=== PATIENT | female | born 1980 | race Caucasian/White ===

== ENCOUNTER 2018-04-16 12:41 | Emergency (ER) | payer OTHER ==
[~2018-04-16] VITALS: Ht 162.6 cm; Wt 115.2 kg
[2018-04-16 14:10] VITALS: BP 138/88
--- NOTE | 2018-04-16 14:29 | PHYS DOC ---
Adult General Chief Complaint Chief Complaint: FLU SYMPTOM HPI HPI Patient is a 37 year old F who presents with 2-3 days of fever, cough, congestion and body aches. She did have some vomiting which has resolved. Her 3 year old son was recently sick with a "virus" and thinks she caught it from him but she tried to go to work today and felt too sick to be there so decided to come in for evaluation. She states she feels very run down. She has a history of viral meningitis and states her body never full recovered from that years ago. Review of Systems Review of Systems Constitutional: Reports fevers and chills. HENT: Reports nasal congestion, ear pressure and sinus pain. Respiratory: Reports nonproductive cough. Cardiovascular: No chest pain, palpitations or edema. GI: Denies abdominal pain or diarrhea. She did have nausea and vomiting. : Denies dysuria or hematuria Musculoskeletal: Denies back pain. Diffuse myalgias. Integument: Denies rash or skin lesions Neurologic: Denies headache, focal weakness or sensory changes All other systems were reviewed and found to be within normal limits, except as documented in this note. Allergies Allergies Allergies Coded Allergies Type Severity Reaction Last Updated Verified No Known Drug Allergies 04/16/18 No Physical Exam Physical Exam Constitutional: Well developed, well nourished, no acute distress, non-toxic appearance. She does appear to not feel well and is flushed. HENT: Normocephalic, atraumatic, bilateral ear erythema, nasal congestion noted- clear, B maxillary sinus tenderness. Eyes: PERRLA, EOMI, conjunctiva normal, no discharge. Neck: Normal range of motion, no tenderness, supple, no stridor. No meningismus. Cardiovascular:Heart rate regular rhythm, no murmur Lungs & Thorax: Bilateral breath sounds clear to auscultation Abdomen: Bowel sounds normal, soft, no tenderness, no masses, no pulsatile masses. Skin: Warm, dry, no erythema, no rash. Back: No tenderness, no CVA tenderness. Extremities: No tenderness, no cyanosis, no clubbing, ROM intact, no edema. Neurologic: Alert and oriented X 3, normal motor function, normal sensory function, no focal deficits noted. Psychologic: Affect normal, judgement normal, mood normal. Current Patient Data Vital Signs Vital Signs Date Time Temp Pulse Resp B/P (MAP) Pulse Ox O2 Delivery O2 Flow Rate FiO2 04/16/18 14:10 97.9 72 16 138/88 (105) 100 Room Air 97.9 Lab Values Laboratory Tests Test 04/16/18 14:20 Influenza Type A Antigen Negative (NEGATIVE) Influenza Type B Antigen Negative (NEGATIVE) EKG EKG [] Radiology/Procedures Radiology/Procedures [] Course & Med Decision Making Course & Med Decision Making Pertinent Labs and Imaging studies reviewed. (See chart for details) Influenza swab is negative, discussed treating her for sinus infection with her hx of those and current symptoms but discussed that this could still be a viral illness. Pt encouraged to rest, push fluids and wrote work note for next 48 hours. Pt to return if symptoms worsen at anytime. Dragon Disclaimer Dragon Disclaimer This electronic medical record was generated, in whole or in part, using a voice recognition dictation system. Departure Departure Impression: Primary Impression: Sinusitis Disposition: HOME, SELF-CARE Condition: GOOD Referrals: DIANE CERDA DO (PCP) Patient Instructions: Sinusitis, Ebuf-[id number] Additional Instructions: Please rest, push fluids and bland diet and follow up with your PCP. Scripts Ondansetron (ZOFRAN ODT) 4 Mg Tab.rapdis 1 TAB SL Q8HRS, #10 TAB Prov: GRACE RODAS 04/16/18 Fluticasone Propionate (Flonase Allergy Relief) 9.9 Ml Mobile.susp 2 SPRAYS NS DAILY for 7 Days, BOTTLE Prov: GRACE RODAS 04/16/18 Azithromycin (AZITHROMYCIN PACKET) 1 Gm Packet 1 PACKET PO ONCE, #1 PACKET Prov: GRACE RODAS 04/16/18 GRACE RODAS Apr 16, 2018 14:29
[2018-04-16 15:03] LABS: INFLUENZA A PATIENT NEGATIVE (NEGATIVE); INFLUENZA B PATIENT NEGATIVE (NEGATIVE)
[2018-04-16] MEDS ORDERED: AZIT1PAC9 PO (15:10)
[2018-04-16] MEDS ORDERED: FLUT9.9S NS (15:10)
[2018-04-16] MEDS ORDERED: ONDA4TAB10 SL (15:10)
== END 2018-04-16 15:19 | disposition home or self-care (01) ==
LOC: ER 12:41
DX: J32.9 Chronic sinusitis, unspecified (principal)
CPT/HCPCS: 87804; 99284

== ENCOUNTER 2018-06-20 12:58 | Emergency (ER) | payer OTHER ==
[~2018-06-20] VITALS: Ht 162.6 cm; Wt 113.4 kg
[~2018-06-20 12:58] MED LIST: AZIT1PAC9 PO; FLUT9.9S NS; ONDA4TAB10 SL
[2018-06-20 13:12] VITALS: BP 134/84
[2018-06-20] MEDS ORDERED: TETRACAINE 0.5% OPHTH SOLUTION 4ML BOTTLE. OS ONE (13:15)
[2018-06-20] MEDS ORDERED: FLUORESCEIN OPHTH TEST STRIP. OS ONE (13:15)
[2018-06-20] MEDS ORDERED: NEOMY/BACITR/POLYMYXIN OINT PACKET. TP ONE (13:54)
[2018-06-20] MEDS ORDERED: TRAM50TA PO (13:56)
--- NOTE | 2018-06-20 13:57 | PHYS DOC ---
Past Medical History Past Medical History: Anxiety, Bipolar, Hypertension Additional Past Medical Histor: viral spinal meningitis; PTSD; eye problem Past Surgical History: Alcohol Use: None Drug Use: None Adult General Chief Complaint Chief Complaint: EYE PROBLEMS HPI HPI Patient is a 37 year old female who presents with an injury to the left eye that occurred yesterday when her toddler history the eye with a leg go medical block. The patient was blind having glass contact lens at the time and states that it felt like it scratched her eye. She states the contact did not break. She immediately took her contact lens out but has continued to have pain and redness. She denies any changes in vision. She states that she was carrying a laundry basket down the stairs today and was unable to see properly. With her poor visual acuity she slipped and when she caught herself she cut her finger on the metal tread of the stair. She cleaned it and placed Band-Aids over it. She is up-to-date on her tetanus vaccine. Review of Systems Review of Systems Constitutional: Denies fever or chills [] Eyes: See history of present illness HENT: Denies nasal congestion or sore throat [] Respiratory: Denies cough or shortness of breath [] Cardiovascular: No additional information not addressed in HPI [] Musculoskeletal: Denies back pain or joint pain [] Integument: See history of present illness Neurologic: Denies headache, focal weakness or sensory changes [] Endocrine: Denies polyuria or polydipsia [] All other systems were reviewed and found to be within normal limits, except as documented in this note. Current Medications Current Medications Current Medications Medications (Trade) Dose Ordered Sig/Trupti Start Time Stop Time Status Last Admin Dose Admin Fluorescein Sodium (Ful-Shy) 1 strip 1X ONCE 06/20/18 13:15 06/20/18 13:16 DC 06/20/18 13:15 1 STRIP Neomycin/ Polymyxin/ Bacitracin (Triple Antibiotic Ointment) 1 pkt STK-MED ONCE 06/20/18 13:54 06/20/18 13:55 DC Tetracaine HCl (Tetracaine) 1 drop 1X ONCE 06/20/18 13:15 06/20/18 13:16 DC 06/20/18 13:15 1 DROP Allergies Allergies Allergies Coded Allergies Type Severity Reaction Last Updated Verified No Known Drug Allergies 04/16/18 No Physical Exam Physical Exam Constitutional: Well developed, well nourished, no acute distress, non-toxic appearance. [] HENT: Normocephalic, atraumatic, bilateral external ears normal, oropharynx moist, no oral exudates, nose normal. [] Eyes: PERRLA, EOMI, conjunctiva erythematous to left, right eye normal, copious watery discharge. [] Neck: Normal range of motion, no tenderness, supple, no stridor. [] Cardiovascular:Heart rate regular rhythm, no murmur [] Lungs & Thorax: Bilateral breath sounds clear to auscultation [] Skin: Skin has been shorn off the dorsal fifth digit that is shallow and non- gaping Back: No tenderness, no CVA tenderness. [] Extremities: tenderness, no cyanosis, no clubbing, ROM intact, no edema or sign of tendon injury. [] Neurologic: Alert and oriented X 3, normal motor function, normal sensory function, no focal deficits noted. [] Psychologic: Affect normal, judgement normal, mood normal. [] Current Patient Data Vital Signs Vital Signs Date Time Temp Pulse Resp B/P (MAP) Pulse Ox O2 Delivery O2 Flow Rate FiO2 06/20/18 13:12 98.2 88 16 134/84 (101) 98 Room Air 98.2 EKG EKG [] Radiology/Procedures Radiology/Procedures A wood's lamp was used to examine the eye after instillation of tetracaine and full glow. A corneal abrasion was noted across the bottom half of the cornea with dye uptake. Course & Med Decision Making Course & Med Decision Making Pertinent Labs and Imaging studies reviewed. (See chart for details) []See visual acuity in nurse's note. These acuities are unchanged from the patient's normal baseline. The patient's finger was cleaned and dressed with Neosporin and nonadherent gauze. Dragon Disclaimer Dragon Disclaimer This electronic medical record was generated, in whole or in part, using a voice recognition dictation system. Departure Departure Impression: Primary Impression: Corneal abrasion Additional Impression: Laceration of finger Disposition: HOME, SELF-CARE Condition: STABLE Referrals: DIANE CERDA DO (PCP) Patient Instructions: Eye - Corneal Abrasion, Laceration Care, Adult Additional Instructions: Keep the wound finger clean and dry. Watch for any signs of infection. Use your at home antibiotic for your eye. Follow-up with your eye doctor in the next 3 days for a recheck. If worsening return to the emergency department. Scripts Tramadol Hcl (TRAMADOL HCL) 50 Mg Tablet 50 MG PO Q6HRS PRN for PAIN, #10 TAB Prov: MARK LOCKETT APRN 06/20/18 Problem Qualifiers MARK LOCKETT APRN Jun 20, 2018 13:56
== END 2018-06-20 14:05 | disposition home or self-care (01) ==
LOC: ER 12:58
DX: S61.216A Laceration without foreign body of right little finger without damage to nail, initial encounter (principal); H18.822 Corneal disorder due to contact lens, left eye; F41.9 Anxiety disorder, unspecified; F31.9 Bipolar disorder, unspecified; I10 Essential (primary) hypertension; Z98.890 Other specified postprocedural states; W26.8XXA Contact with other sharp object(s), not elsewhere classified, initial encounter; Y93.89 Activity, other specified; Y92.89 Other specified places as the place of occurrence of the external cause; Y99.8 Other external cause status
CPT/HCPCS: 99284

== ENCOUNTER 2019-01-07 12:18 | Emergency (ER) | payer OTHER ==
[~2019-01-07] VITALS: Ht 162.6 cm; Wt 113.4 kg
[~2019-01-07 12:18] MED LIST changes: +TRAM50TA PO
[2019-01-07 12:50] VITALS: BP 116/68
--- NOTE | 2019-01-07 13:50 | RAD ---
Right ankle, 3 views, 01/07/2019: HISTORY: Fall, ankle pain No fracture or dislocation is identified. The soft tissues are unremarkable. IMPRESSION: No acute bony abnormality is detected. Electronically signed by: Rich Dawson MD (01/07/2019 1:47 PM) [facility]
--- NOTE | 2019-01-07 14:01 | RAD ---
CT of the head without contrast, 01/07/2019: HISTORY: Fall The ventricles are within normal limits in size. There is no shift of the midline structures. There is no evidence of acute intracranial hemorrhage or mass effect. IMPRESSION: No acute intracranial abnormality is detected. RS Compliance Statement: One or more of the following individualized dose reduction techniques were utilized for this examination: 1. Automated exposure control 2. Adjustment of the mA and/or kV according to patient size 3. Use of iterative reconstruction technique Electronically signed by: Rich Dawson MD (01/07/2019 1:58 PM) [facility] [place]
[2019-01-07] MEDS ORDERED: IBUP-1060 PO (14:10)
--- NOTE | 2019-01-07 14:10 | PHYS DOC ---
Past Medical History Past Medical History: Anxiety, Bipolar, Hypertension Additional Past Medical Histor: viral spinal meningitis; PTSD; eye problem Past Surgical History: Alcohol Use: None Drug Use: None Adult General Chief Complaint Chief Complaint: MECHANICAL FALL HPI HPI Patient is a 38 year old female who presents with complaining of ankle pain. Patient states she had the fall from 4 steps on to 4 hours prior to arrival to ER without loss of consciousness. Patient states she hit her head and twisted her right ankle without other injuries. Patient rated her pain moderate and denies focal neuro deficit. Patient doesn't want to have pain medication in ER. Review of Systems Review of Systems Constitutional: Denies fever or chills [] Eyes: Denies change in visual acuity, redness, or eye pain [] HENT: Denies nasal congestion or sore throat [] Respiratory: Denies cough or shortness of breath [] Cardiovascular: No additional information not addressed in HPI [] GI: Denies abdominal pain, nausea, vomiting, bloody stools or diarrhea [] : Denies dysuria or hematuria [] Musculoskeletal: Denies back pain, reports joint pain [] Integument: Denies rash or skin lesions [] Neurologic: Reports headache, denies focal weakness or sensory changes [] Endocrine: Denies polyuria or polydipsia [] All other systems were reviewed and found to be within normal limits, except as documented in this note. Allergies Allergies Allergies Coded Allergies Type Severity Reaction Last Updated Verified No Known Drug Allergies 04/16/18 No Physical Exam Physical Exam Constitutional: Well developed, well nourished, mild distress, non-toxic appearance. [] HENT: Normocephalic, atraumatic, oropharynx moist, no oral exudates, nose normal. [] Eyes: PERRLA, EOMI, conjunctiva normal, no discharge. [] Neck: Normal range of motion, no tenderness, supple, no stridor. [] Cardiovascular:Heart rate regular rhythm, no murmur [] Lungs & Thorax: Bilateral breath sounds clear to auscultation [] Abdomen: Bowel sounds normal, soft, no tenderness, no masses, no pulsatile masses. [] Skin: Warm, dry, no erythema, no rash. [] Back: No tenderness, no CVA tenderness. [] Extremities: Right ankle without deformity, mild tenderness in lateral malleolus without edema or constipation,, no cyanosis, no clubbing, ROM intact, no edema. [] Neurologic: Alert and oriented X 3, normal motor function, normal sensory function, no focal deficits noted. [] Psychologic: Affect normal, judgement normal, mood normal. [] Current Patient Data Vital Signs Vital Signs Date Time Temp Pulse Resp B/P (MAP) Pulse Ox O2 Delivery O2 Flow Rate FiO2 01/07/19 12:50 97.7 83 16 116/68 (84) 98 Room Air 97.7 EKG EKG [] Radiology/Procedures Radiology/[place] [address] IMAGING REPORT Signed PATIENT: YOVANI WYNN ACCOUNT: [id number] : 1980 LOCATION: ER AGE: 38 SEX: F EXAM STATUS: REG ER ORD. PHYSICIAN: NOEL MARTINS MD REASON: pt fell, rt ankle pain PROCEDURE: ANKLE RIGHT 3V Right ankle, 3 views, 01/07/2019: HISTORY: Fall, ankle pain No fracture or dislocation is identified. The soft tissues are unremarkable. IMPRESSION: No acute bony abnormality is detected. Electronically signed by: Rich Dawson MD (01/07/2019 1:47 PM) [facility] DICTATED and SIGNED BY: RICH DAWSON MD DATE: 01/07/[address] [address] IMAGING REPORT Signed PATIENT: YOVANI WYNN ACCOUNT: [id number] : 1980 LOCATION: ER AGE: 38 SEX: F EXAM STATUS: REG ER ORD. PHYSICIAN: NOEL MARTINS MD REASON: fall PROCEDURE: CT HEAD WO CONTRAST CT of the head without contrast, 01/07/2019: HISTORY: Fall The ventricles are within normal limits in size. There is no shift of the midline structures. There is no evidence of acute intracranial hemorrhage or mass effect. IMPRESSION: No acute intracranial abnormality is detected. PQRS Compliance Statement: One or more of the following individualized dose reduction techniques were utilized for this examination: 1. Automated exposure control 2. Adjustment of the mA and/or kV according to patient size 3. Use of iterative reconstruction technique Electronically signed by: Rich Dawson MD (01/07/2019 1:58 PM) [facility] DICTATED and SIGNED BY: RICH DAWSON MD DATE: 01/07/19 5982 Course & Med Decision Making Course & Med Decision Making Pertinent Imaging studies reviewed. (See chart for details) discharge: I've spoken with the patient and/or caregivers. I've explained the patient's condition, diagnosis and treatment plan based on information available to me at this time. I've answered the patient's and/or caregivers questions and addressed any concerns. The patient and/or caregivers have a good understanding the patient's diagnosis, condition and treatment plan as can be expected at this point. Vital signs have been stabilized. The patient's condition is stable for discharge from the emergency department. The patient will pursue further outpatient evaluation with her primary care provider or other designated consulting physician as outlined in the discharge instructions. Patient and/or caregivers are agreeable to this plan of care and follow-up instructions have been explained in detail. The patient and/or caregivers have received these instructions in written format and expressed understanding of these discharge instructions. The patient and her caregivers are aware that if any significant change in condition or worsening of symptoms should prompt him to immediately return to this of the closest emergency department. If an emergent department is not readily available I would encourage him to call 911. Dragon Disclaimer Dragon Disclaimer This electronic medical record was generated, in whole or in part, using a voice recognition dictation system. Departure Departure Impression: Primary Impression: Right ankle sprain Additional Impressions: Fall down stairs Head injury Disposition: HOME, SELF-CARE ([id number]) Condition: STABLE Referrals: DIANE CERDA DO (PCP) Patient Instructions: Ankle Sprain, Head Injury, Adult Additional Instructions: Drink plenty of liquids Follow-up with your primary care physician in 3-5 days Return to ER if not getting better Apply ice on your ankle Scripts Ibuprofen (IBUPROFEN) 800 Mg Tablet 800 MG PO PRN Q8HRS PRN for INFLAMMATION, #20 TAB Prov: NOEL MARTINS MD 01/07/19 Problem Qualifiers Primary Impression: Right ankle sprain Encounter type: initial encounter Involved ligament of ankle: unspecified ligament Qualified Codes: S93.401A - Sprain of unspecified ligament of right ankle, initial encounter Additional Impressions: Fall down stairs Encounter type: subsequent encounter Qualified Codes: W10.8XXD - Fall (on) (from) other stairs and steps, subsequent encounter Head injury Encounter type: subsequent encounter Qualified Codes: S09.90XD - Unspecified injury of head, subsequent encounter NOLE MARTINS MD Jan 07, 2019 14:10
== END 2019-01-07 14:34 | disposition home or self-care (01) ==
LOC: ER 12:18
DX: S93.401A Sprain of unspecified ligament of right ankle, initial encounter (principal); S09.90XA Unspecified injury of head, initial encounter; F31.9 Bipolar disorder, unspecified; I10 Essential (primary) hypertension; F41.9 Anxiety disorder, unspecified; R51 Headache; Z86.718 Personal history of other venous thrombosis and embolism; W10.8XXA Fall (on) (from) other stairs and steps, initial encounter; Y93.89 Activity, other specified; Y92.89 Other specified places as the place of occurrence of the external cause; Y99.8 Other external cause status
CPT/HCPCS: 70450; 73610; 99284-25

== ENCOUNTER 2019-01-13 10:42 | Emergency (ER) | payer OTHER ==
[~2019-01-13] VITALS: Ht 162.6 cm; Wt 113.4 kg
[~2019-01-13 10:42] MED LIST changes: +IBUP-1060 PO
[2019-01-13 10:48] VITALS: BP 156/90
--- NOTE | 2019-01-13 11:15 | RAD ---
ANKLE RIGHT 3V History: Twisting injury, fall and injury, right ankle pain Comparison: January 07, 2019 Findings: 3 views right ankle are submitted. No acute fracture or dislocation is identified. Impression: 1. No acute radiographic abnormality is identified. Electronically signed by: Pillo Mascorro MD (01/13/2019 11:12 AM) [facility]
--- NOTE | 2019-01-13 11:30 | PHYS DOC ---
Past Medical History Past Medical History: Anxiety, Bipolar, Hypertension Additional Past Medical Histor: viral spinal meningitis; PTSD; eye problem Past Surgical History: Alcohol Use: None Drug Use: None Adult General Chief Complaint Chief Complaint: ANKLE PROBLEM HPI HPI Patient is a 38 year old female who presents with 7/10 sharp right ankle pain, patient states she was walking down some steps when she rolled her ankle. Patient states the pain is sharp and constant on the lateral aspect of the right ankle worse on weight-bearing. She states last week she did the same thing had negative x-rays was sent home. Review of Systems Review of Systems Constitutional: Denies fever or chills [] Musculoskeletal: Reports right ankle pain Integument: Denies rash or skin lesions [] Neurologic: Denies headache, focal weakness or sensory changes [] All other systems were reviewed and found to be within normal limits, except as documented in this note. Allergies Allergies Allergies Coded Allergies Type Severity Reaction Last Updated Verified No Known Drug Allergies 04/16/18 No Physical Exam Physical Exam Constitutional: Well developed, well nourished, no acute distress, non-toxic appearance. [] Skin: Warm, dry, no erythema, no rash. [] Back: No tenderness, no CVA tenderness. [] Extremities: Right ankle with no obvious deformity, small soft tissue swelling noted on the lateral aspect of the right ankle. Tenderness on patient of the right lateral ankle. Full range of motion to the right ankle and foot. Full range of motion to the right toes. +2 right pedal pulse. Cap refill less than 2 seconds the right toes. Neurologic: Alert and oriented X 3, normal motor function, normal sensory function, no focal deficits noted. [] Psychologic: Affect normal, judgement normal, mood normal. [] Current Patient Data Vital Signs Vital Signs Date Time Temp Pulse Resp B/P (MAP) Pulse Ox O2 Delivery O2 Flow Rate FiO2 01/13/19 10:48 97.6 68 14 156/90 (112) 99 Room Air 97.6 EKG EKG [] Radiology/Procedures Radiology/Procedures []PROCEDURE: ANKLE RIGHT 3V ANKLE RIGHT 3V History: Twisting injury, fall and injury, right ankle pain Comparison: January 07, 2019 Findings: 3 views right ankle are submitted. No acute fracture or dislocation is identified. Impression: 1. No acute radiographic abnormality is identified. Electronically signed by: Padmini Casas MD (01/13/2019 11:12 AM) [facility] DICTATED and SIGNED BY: PADMINI CASAS MD DATE: 01/13/19 1112 Course & Med Decision Making Course & Med Decision Making Pertinent Labs and Imaging studies reviewed. (See chart for details) This is a 38-year-old female patient presenting to the ED today with right ankle pain after rolling it today. Right ankle x-rays interpreted by radiologist are negative for any acute findings. Air cast provided by the mechanical engineering technician, neurovascular exam is intact. Ice elevation encouraged. Follow-up with orthopedic doctor in one week. Note for work provided. Dragon Disclaimer Dragon Disclaimer This electronic medical record was generated, in whole or in part, using a voice recognition dictation system. Departure Departure Impression: Primary Impression: Right ankle sprain Disposition: 01 HOME, SELF-CARE Condition: STABLE Referrals: DIANE CERDA DO (PCP) MILE CARRASCO II, MD follow-up in 1-2 weeks Patient Instructions: Ankle Sprain Additional Instructions: You were seen for right ankle sprain. Ice and elevate the extremity. You can take Tylenol as needed for pain considering you are already on Celebrex. Follow- up with the provided orthopedic doctor in one week. Problem Qualifiers Primary Impression: Right ankle sprain Encounter type: initial encounter Involved ligament of ankle: unspecified ligament Qualified Codes: S93.401A - Sprain of unspecified ligament of right ankle, initial encounter SHARRAMON CARPET CUTTER Jan 13, 2019 11:30
== END 2019-01-13 11:40 | disposition home or self-care (01) ==
LOC: ER 10:42
DX: S93.401A Sprain of unspecified ligament of right ankle, initial encounter (principal); F31.9 Bipolar disorder, unspecified; I10 Essential (primary) hypertension; X50.9XXA Other and unspecified overexertion or strenuous movements or postures, initial encounter; Y93.01 Activity, walking, marching and hiking; Y92.89 Other specified places as the place of occurrence of the external cause; Y99.8 Other external cause status
CPT/HCPCS: 73610; 99284; L4350